=== PATIENT | male | born 1980 ===

== ENCOUNTER 2021-04-11 15:26 | Emergency (ER) | payer SELFPAY ==
[2021-04-11] MEDS ORDERED: IBUPROFEN 800 MG TAB PO STA (15:50)
[2021-04-11] MEDS ORDERED: TETANUS,DIPH,PERTUSS(ACELL) VACCINE 0.5 ML SYRINGE IM ONE (15:50)
[2021-04-11] MEDS ORDERED: oxyCODONE /ACETAMINOPHEN 5-325MG TAB PO ONE (15:51)
--- NOTE | 2021-04-11 16:35 | XRay Report ---
RIGHT WRIST 4 VIEWS INDICATION / CLINICAL INFORMATION: Dog bites; rule out fracture/foreign bodies. COMPARISON: None available. FINDINGS: BONES / JOINT(S): No acute fracture or subluxation. There are mild degenerative changes involving the first metacarpophalangeal joint. SOFT TISSUES: Soft tissue irregularities are noted along the medial aspect of the hand consistent wit h lacerations. I do not identify a radiopaque foreign body. ADDITIONAL FINDINGS: None. Signer Name: Marcelo Whyte MD Signed: 04/11/2021 4:30 PM Workstation Name: [id number]
[2021-04-11] MEDS ORDERED: LIDOCAINE (1%) 10 MG/1 ML VIAL 20 ML MDV INFILTRATI ONE (17:16)
--- NOTE | 2021-04-11 17:19 | Emergency Department Report ---
ED General Adult HPI - General Chief complaint: Animal Bite Stated complaint: LAC TO HAND/DOG BITE Time Seen by Provider: 04/11/21 15:37 Source: patient Mode of arrival: Ambulatory Limitations: No Limitations - History of Present Illness Initial comments: 41-year-old [id number] male patient presents to the emergency department with complaints of multiple dog bites to his right hand occurring earlier today. Patient states the dog is well-known to him. The dog's immunizations are up-to-date. No other injuries. Denies headache, neck pain, c hest pain, abdominal pain, back pain, paresthesias, numbness, weakness. Denies all other complaints at this time. Severity scale (0 -10): 7 - Related Data Previous Rx's Medication Instructions Recorded Last Taken Type Amoxicillin/Potassium Clav 1 each PO BID 5 Days tablet 04/11/21 Unknown Rx [Augmentin 875-125 Tablet] Mupirocin [Bactroban 2%] 1 applic TP TID #1 tube 04/11/21 Unknown Rx Naproxen 500 mg PO BID #20 tablet 04/11/21 Unknown Rx traMADoL [Ultram 50 MG tab] 50 mg PO Q4HR PRN #10 tablet 04/11/21 Unknown Rx Allergies Allergy/AdvReac Type Severity Reaction Status Date / Time No Known Allergies Allergy Verified 04/11/21 17:22 ED Review of Systems ROS: Stated complaint: LAC TO HAND/DOG BITE Other details as noted in HPI Other: CARDIOVASCULAR: Negative for chest pain. PULMONARY: Negative for dyspnea. GASTROINTESTINAL: Negative for abdominal pain. MUSCULOSKELETAL: Negative for back pain and neck pain. NEUROLOGICAL: Negative for headache. INTEGUMENTARY: Positive for laceration and abrasion ED Past Medical Hx - Past Medical History Previous Medical History?: No - Social History Smoking Status: Never Smoker Substance Use Type: None - Medications Home Medications: Home Medications Medication Instructions Recorded Confirmed Last Taken Type Amoxicillin/Potassium Clav 1 each PO BID 5 Days tablet 04/11/21 Unknown Rx [Augmentin 875-125 Tablet] Mupirocin [Bactroban 2%] 1 applic TP TID #1 tube 04/11/21 Unknown Rx Naproxen 500 mg PO BID #20 tablet 04/11/21 Unknown Rx traMADoL [Ultram 50 MG tab] 50 mg PO Q4HR PRN #10 tablet 04/11/21 Unknown Rx ED Physical Exam - General Limitations: No Limitations - Other Other exam information: General: Awake, appropriately interactive, no acute distress. Neck: Supple. Full range of motion intact. Cardiovascular: Normal peripheral perfusion. Pulmonary: No respiratory distress. Patient is speaking normally without use of accessory muscles. Skin: Three lacerations to the dorsal aspect of the right hand involving skin and subcutaneous tissue. Laceration #1 overlying the right 5th metaracarpal, horizontal, linear, wound edges well approximated. Laceration #2 along the ulnar aspect of the right hand adjacent to the right metacarpal, horizontal, linear, wound edges poorly approximated. Laceration #3 overlying the right fifth PIP j oint, irregular/stellate, involving skin and subcutaneous tissue. No tendon injury visualized. Active and passive range of motion intact with and without resistance in all directions. Distal neurovascular motor/sensory function intact. No evidence of retained foreign body. Neurological: No facial asymmetry. Speech is clear. Follows commands. Patient is alert and oriented. Musculoskeletal: Moves all four extremities spontaneously with normal range of motion. Psych: Cooperative. Appropriate mood and affect. ED Course Vital Signs 04/11/21 04/11/21 04/11/21 15:33 16:59 17:07 Temperature 98.1 F Pulse Rate 100 H Respiratory 20 16 Rate Blood Pressure 145/88 O2 Sat by Pulse 98 99 Oximetry 04/11/21 17:27 Temperature Pulse Rate 80 Respiratory 16 Rate Blood Pressure 126/76 O2 Sat by Pulse 98 Oximetry - Procedure Description Procedures done: Laceration Repair #1: Verbal consent was obtained from the patient. The site was identified. Hand hygiene was observed. The area was prepped and draped. The wound was irrigated extensively with saline. The wound was cleansed with Betadine. The wound was explored for foreign body. No foreign body was found. Wound edges were loosely approximated with Steri- Strips. Repeat neurovascular exam remains intact. Antibiotic ointment applied. Dressing applied. Patient tolerated procedure well without complications. Laceration Repair #2: Verbal consent was obtained from the patient. The site was identified. Hand hygiene was observed. The area was prepped and draped. The wound was irrigated extensively with saline. The wound was cleansed with Betadine. The wound was explored for foreign body. No foreign body was found. Lidocaine 1% was used for local anesthetic. Approximately 3 mL of anesthetic were infiltrated along the wound edges. The wound was loosely approximated with two 4-0 Prolene sutures and Steri-Strips. Repeat neurovascular exam remains intact. Antibiotic ointment applied. Dressing applied. Finger splint applied. Patient tolerated procedure well without complications. Laceration Repair #3: Verbal consent was obtained from the patient. The site was identified. Hand hygiene was observed. The area was prepped and draped. The wound was irrigated extensively with saline. The wound was cleansed with Betadine. The wound was explored for foreign body. No foreign body was found. Wound edges were loosely approximated with Steri-Strips. Repeat neurovascular exam remains intact. Antibiotic ointment applied. Dressing applied. Finger splint applied. Patient tolerated procedure well without complications. ED Medical Decision Making - Medical Decision Making Differential diagnosis including but not limited to: laceration, abrasion, retained foreign body, fracture Patient presents to the emergency department with multiple dog bites to the right hand. He is hemodynamically stable and neurovascularly intact. Tetanus updated. Pain is controlled. The dog's vaccinations are up-to-date. X-rays without evidence of retained foreign body. Wound edges were irrigated extensively and loosely reapproximated with good hemostasis. See procedure notes for details. No clinical indication for further diagnostic work-up on an emergent basis at this time. Patient will be discharged home with appropriate analgesics, antibiotics, and referral to primary care provider for close outpatient follow-up. Patient expressed understanding and is agreeable to plan of care. Wound care precautions discussed. Strict return precautions provided. Repeat exam is unremarkable and benign. History, exam, diagnostic testing, and current condition do not suggest worrisome pathology to warrant further testing, continued ED treatment, admission, or surgical evaluation at this point. Given the low probability of a significant medical illness, it would be more likely to result in harm than benefit to perform further testing at this stage. Discussed findings, presumptive diagnosis, need for follow-up and specific signs/symptoms that should prompt immediate return to the emergency department. Instructions were explained in detail to the patient in addition to giving written discharge information. Patient expressed understanding and was given the opportunity to ask questions, all of which were satisfactorily answered prior to discharge home. Critical care attestation.: If time is entered above; I have spent that time in minutes in the direct care of this critically ill patient, excluding procedure time. ED Disposition Clinical Impression: Dog bite of right hand Qualifiers: Encounter type: initial encounter Qualified Code(s): S61.451A - Open bite of right hand, initial encounter; W54.0XXA - Bitten by dog, initial encounter Disposition: 01 HOME / SELF CARE / HOMELESS Is pt being admited?: No Does the pt Need Aspirin: No Condition: Stable Instructions: Animal Bite, Adult, [id number] Additional Instructions: Take Naprosyn twice daily with food as needed for pain. If this medication is not sufficient in controlling your pain, take Tramadol as directed. Do not consume alcohol while taking this medication. Do not drive or operate machinery while taking this medication. Apply Bactroban ointment to affected areas 3 times daily. Take Augmentin with food as directed. Increase your dietary intake of probiotic rich foods while taking this medication. Keep wounds clean and covered. Change dressing daily. Monitor wounds closely for signs of infection. Steri-Strips will fall off on their own within two weeks. Follow up with primary care provider for suture removal in 7-10 days. Call tomorrow to schedule an appointment. See referral information below. Return to the emergency department immediately for new or worsening symptoms. Specifically, return to the emergency department immediately for fever, worsening pain, increased swelling, drainage, numbness, skin color changes, or any other concerns. Prescriptions: Amoxicillin/Potassium Clav [Augmentin 875-125 Tablet] 1 each PO BID 5 Days tablet Mupirocin [Bactroban 2%] 1 applic TP TID #1 tube Naproxen 500 mg PO BID #20 tablet traMADoL [Ultram 50 MG tab] 50 mg PO Q4HR PRN #10 tablet PRN Reason: Pain Referrals: FRANCISCO COPPOLA MD [Staff Physician] - 3-5 Days [facility] [Provider Group] - 3-5 Days [facility] [place] [facility] [place] - 3-5 Days [facility] [Outside] - 3-5 Days [facility] [Outside] - 3-5 Days Forms: Work/School Release Form(ED) Time of Disposition: 18:15
[2021-04-11 17:30] VITALS: BP 126/76
[2021-04-11] MEDS ORDERED: NEOMY 3.5 MG/BACIT 400 UNITS/POLY B 5000 UNITS/GM OINT PACKET TP ONE (17:59)
== END 2021-04-11 18:50 | disposition home or self-care (01) ==
LOC: EDBD → ED 15:26
DX: S61.411A Laceration without foreign body of right hand, initial encounter (principal); Z79.899 Other long term (current) drug therapy; W54.0XXA Bitten by dog, initial encounter; Y93.89 Activity, other specified; Y92.89 Other specified places as the place of occurrence of the external cause; Y99.8 Other external cause status
CPT/HCPCS: 12001; 73110; 90471; 90715; 99282; A6250